=== PATIENT | female | born 1945 | race Caucasian/White ===

== ENCOUNTER 2017-09-03 08:33 | Emergency (ER) | payer MEDICARE, OTHER ==
--- NOTE | 2017-09-03 08:53 | EDM.PDOC ---
ED HPI GENERAL MEDICAL PROBLEM - General Chief Complaint: Lower Extremity Injury/Pain Stated Complaint: PAIN CALF OF LEFT LEG Time Seen by Provider: 09/03/17 08:53 Source of Information: Reports: Patient, RN, RN Notes Reviewed History Limitations: Reports: No Limitations - History of Present Illness INITIAL COMMENTS - FREE TEXT/NARRATIVE: Pt presents to the ER with c/o sharp stabbing pain to the left calf beginning at 0400 today. She states the pain goes up into the left groin and is achey in the groin. Patient states the pain goes away while sitting with the leg elevated. Patient states she has done her routine PT exercises for her back surgery. She denies any recent trauma to the leg. Patient states she has had some SOB with recent illness. Patient denies any past blood clots. Patient denies any fever or chills. 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: Other Medication(s) (hydrocodone) Left Leg Pain Score (Numeric/FACES): 5 - Related Data Allergies Allergy/AdvReac Type Severity Reaction Status Date / Time codeine Allergy Hallucinati Verified 09/03/17 08:41 ons pentazocine lactate Allergy Cannot Verified 09/03/17 08:41 [From [place]] Remember tramadol Allergy Cannot Verified 09/03/17 08:41 Remember Home Meds: Home Meds Aspirin [Adult Low Dose Aspirin EC] 81 mg PO DAILY 04/06/14 [History] Diclofenac Sodium [Voltaren] 1 tab PO BID 04/06/14 [History] LORazepam [Ativan] 1 tab PO ASDIRECTED 04/06/14 [History] Omeprazole [Omeprazole] 20 mg PO DAILY 04/06/14 [History] metFORMIN [Glucophage XR] 1 tab PO BIDMEALS 04/06/14 [History] Estrogens, Conjugated [Premarin Vaginal Crm] 1 applic TOP ASDIRECTED 06/26/16 [ History] Dronedarone [Multaq] 1 tab PO BID 06/30/16 [History] Hydrocodone/Acetaminophen [[place] 5-325] 1 tab PO ASDIRECTED PRN 06/30/16 [ History] Past Medical History HEENT History: Reports: Cataract, Hard of Hearing Cardiovascular History: Reports: Afib, Pacemaker Other Cardiovascular History: SICK SINUS SYNDROME Respiratory History: Reports: None Gastrointestinal History: Reports: None Genitourinary History: Reports: None 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: Musculoskeletal History: Reports: Back Pain, Chronic, Osteoarthritis Other Musculoskeletal History: DEGENERATIVE JOINT DISEASE - LUMBOSACRAL Neurological History: Reports: None Psychiatric History: Reports: Anxiety, Depression Endocrine/Metabolic History: Reports: Diabetes, Type II Hematologic History: Reports: None Immunologic History: Reports: None Oncologic (Cancer) History: Reports: None Dermatologic History: Reports: None - Infectious Disease History Infectious Disease History: Reports: Chicken Pox, Measles, Mumps, Shingles - Past Surgical History HEENT Surgical History: Reports: Adenoidectomy, Cataract Surgery, Tonsillectomy Respiratory Surgical History: Reports: None GI Surgical History: Reports: Cholecystectomy, Colonoscopy, EGD Female Surgical History: Reports: Section, Hysterectomy, Salpingo- Oophorectomy Musculoskeletal Surgical History: Reports: Other (See Below) Other Musculoskeletal Surgeries/Procedures:: back surgery Social & Family History - Family History Family Medical History: Noncontributory HEENT: Reports: Glaucoma Cardiac: Reports: Afib, Bypass, Hypertension, PR Respiratory: Reports: Asthma GI: Reports: None : Reports: None OBGYN: Reports: None Musculoskeletal: Reports: Arthritis, RA Neurological: Reports: CVA Psychiatric: Reports: None Endocrine/Metabolic: Reports: Hyperthyroidism, Other (See Below) Other Endocrine/Metabolic Family History: THYRIOD DISEASE - 3 MATERNAL AUNTS, MATERNAL GRANDMOTHER. GRAVES DISEASE - BROTHER Hematologic: Reports: None Immunologic: Reports: None Dermatologic: Reports: None Oncologic: Reports: Bone, Colon, Other (See Below) Other Oncologic Family History: multiple myleoma - Tobacco Use Smoking Status *Q: Former Smoker Years of Tobacco use: 24 Month/Year Tobacco Last Used: 1987 Second Hand Smoke Exposure: No - Caffeine Use Caffeine Use: Reports: Coffee - Alcohol Use Days Per Week of Alcohol Use: 0 - Recreational Drug Use Recreational Drug Use: No Drug Use in Last 12 Months: No Review of Systems - Review of Systems Review Of Systems: ROS reveals no pertinent complaints other than HPI. ED EXAM, GENERAL - Physical Exam Exam: See Below Exam Limited By: No Limitations General Appearance: Alert, WD/WN, No Apparent Distress Eye Exam: Bilateral Eye: EOMI, Normal Inspection, PERRL Ears: Normal External Exam, Hearing Grossly Normal Nose: Normal Inspection Throat/Mouth: Normal Inspection, Normal Voice, No Airway Compromise Head: Atraumatic, Normocephalic Neck: Normal Inspection, Supple, Non-Tender, Full Range of Motion Respiratory/Chest: No Respiratory Distress, No Accessory Muscle Use, Chest Non- Tender, Decreased Breath Sounds Cardiovascular: Normal Peripheral Pulses, Regular Rate, Rhythm, No Edema, No Gallop, No JVD, No Murmur, No Rub Peripheral Pulses: 2+: Radial (L), Radial (R), Dorsalis Pedis (L), Dorsalis Pedis (R) GI/Abdominal: Normal Bowel Sounds, Soft, Non-Tender, No Distention (Female) Exam: Deferred Rectal (Female) Exam: Deferred Back Exam: Normal Inspection, Decreased Range of Motion (recent back surgery) Extremities: Normal Inspection, Normal Range of Motion, No Pedal Edema, Normal Capillary Refill, Leg Pain (left calf, left groin) Neurological: Alert, Oriented, CN II-XII Intact, Normal Cognition, Normal Reflexes, No Motor/Sensory Deficits Psychiatric: Normal Affect, Normal Mood Skin Exam: Warm, Dry, Intact, Normal Color, No Rash, Other (increased warmth on left calf area). No: Erythema Lymphatic: No Adenopathy Course - Vital Signs Last Recorded V/S: Last Vital Signs Temp 96.8 F 09/03/17 08:37 Pulse 101 H 09/03/17 08:37 Resp 18 09/03/17 08:37 BP 147/59 H 09/03/17 08:37 Pulse Ox 95 09/03/17 08:37 - Orders/Labs/Meds Labs: Laboratory Tests 09/03/17 09/03/17 09/03/17 Range/Units 09:00 09:00 09:00 WBC 4.6 L (5.0-10.0) 10^3/uL RBC 4.22 (4.2-5.4) 10^6/uL Hgb 8.2 L (12.0-16.0) g/dL Hct 27.8 L (37.0-47.0) % MCV 65.9 L (80-100) fL MCH 19.4 L (27.0-34.0) pg MCHC 29.5 L (33.0-35.0) g/dL Plt Count 223 (150-450) 10^3/uL Neut % (Auto) 49.5 (42.2-75.2) % Lymph % (Auto) 38.3 (20.5-50.1) % Darke % (Auto) 6.8 (2-8) % Eos % (Auto) 2.6 (1.0-3.0) % Baso % (Auto) 2.8 H (0.0-1.0) % ESR 6 (0-20) mm/hr D-Dimer, Quantitative 816 H (0-400) ng/mL Sodium 136 (135-145) mmol/L Potassium 4.3 (3.6-5.0) mmol/L Chloride 103 (101-111) mmol/L Carbon Dioxide 22.0 (21.0-31.0) mmol/L Anion Gap 15.3 BUN 19 H (7-18) mg/dL Creatinine 0.8 (0.6-1.3) mg/dL Est Cr Clr Drug Dosing 66.59 mL/min Estimated GFR (MDRD) > 60 BUN/Creatinine Ratio 23.75 Glucose 171 H (74-105) mg/dL Calcium 9.0 (8.4-10.2) mg/dl Total Bilirubin 0.8 (0.2-1.0) mg/dL AST 30 (10-42) IU/L ALT 13 (10-60) IU/L Alkaline Phosphatase 47 (42-121) IU/L C-Reactive Protein (0.0-1.3) mg/dL Total Protein 7.2 (6.7-8.2) g/dl Albumin 3.9 (3.2-5.5) g/dl Globulin 3.3 Albumin/Globulin Ratio 1.18 / Range/Units 09:00 WBC (5.0-10.0) 10^3/uL RBC (4.2-5.4) 10^6/uL Hgb (12.0-16.0) g/dL Hct (37.0-47.0) % MCV (80-100) fL MCH (27.0-34.0) pg MCHC (33.0-35.0) g/dL Plt Count (150-450) 10^3/uL Neut % (Auto) (42.2-75.2) % Lymph % (Auto) (20.5-50.1) % Darke % (Auto) (2-8) % Eos % (Auto) (1.0-3.0) % Baso % (Auto) (0.0-1.0) % ESR (0-20) mm/hr D-Dimer, Quantitative (0-400) ng/mL Sodium (135-145) mmol/L Potassium (3.6-5.0) mmol/L Chloride (101-111) mmol/L Carbon Dioxide (21.0-31.0) mmol/L Anion Gap BUN (7-18) mg/dL Creatinine (0.6-1.3) mg/dL Est Cr Clr Drug Dosing mL/min Estimated GFR (MDRD) BUN/Creatinine Ratio Glucose (74-105) mg/dL Calcium (8.4-10.2) mg/dl Total Bilirubin (0.2-1.0) mg/dL AST (10-42) IU/L ALT (10-60) IU/L Alkaline Phosphatase (42-121) IU/L C-Reactive Protein 0.5 (0.0-1.3) mg/dL Total Protein (6.7-8.2) g/dl Albumin (3.2-5.5) g/dl Globulin Albumin/Globulin Ratio Occult blood: NEGATIVE - Radiology Interpretation Free Text/Narrative:: Left leg ultrasound: No Acute findings See rad report - Re-Assessments/Exams Free Text/Narrative Re-Assessment/Exam: 09/03/17 10:26 Discussed the patient case with her primary care provider, Dr. Calderon. He states he would like her to follow up with him next week regarding the hemaglobin, and pain in the left leg. Patient states understanding. Departure - Departure Time of Disposition: 10:44 Disposition: Home, Self-Care 01 Condition: Fair Clinical Impression: Pain in left lower leg, Musculoskeletal pain of left lower extremity Anemia Qualifiers: Anemia type: unspecified type Qualified Code(s): D64.9 - Anemia, unspecified - Discharge Information Instructions: Anemia, Muscle Strain, [id number] Forms: ED Department Discharge Additional Instructions: Follow up with your primary care facility early next week Elevate and rest the leg as tolerated May ice the area as tolerated
[2017-09-03 09:31] LABS: CHLORIDE,CL 103 mmol/L (101-111); SODIUM,NA 136 mmol/L (135-145)
--- NOTE | 2017-09-03 10:42 | US ---
Clinical history: 71-year-old female complaining of "stabbing" pain left calf. Rule out DVT this obes e symptomatic patient. Interpretation: Negative exam. No sign of intraluminal echogenic thrombus and normal compressibility deep veins of the left groin, t high, knee and. (Superficial varicosity calf left lower extremity). No Kim's cyst behind the left k nee. Satisfactory augmentation and venous waveforms demonstrated in the popliteal vein behind the left kne e and proximally in the femoral veins left lower extremity. CONCLUSION: No sonographic evidence deep vein thrombosis left lower gravity.
[2017-09-03 10:52] VITALS: BP 153/64
== END 2017-09-03 10:54 | disposition home or self-care (01) ==
LOC: DL.ED 08:33
DX: M79.662 Pain in left lower leg (principal); D64.9 Anemia, unspecified; E11.9 Type 2 diabetes mellitus without complications; Z88.5 Allergy status to narcotic agent; Z79.84 Long term (current) use of oral hypoglycemic drugs; Z79.899 Other long term (current) drug therapy; Z87.891 Personal history of nicotine dependence
CPT/HCPCS: 36415; 80053; 82272; 85025; 85379; 85651; 86140; 93971; 99283; 99284

== ENCOUNTER 2017-09-24 07:28 | Day surgery (SDC) | payer MEDICARE, OTHER ==
[~2017-09-24 07:28] MED LIST: Dextrose 5%-0.45% NaCl 1,000 ML IV SCH; Midazolam 1 MG/ML 2 ML SDV ONE; Sodium Chloride 0.9% 10 ML Syringe FLUSH PRN; fentaNYL 100 MCG/2 ML SDV ONE
[2017-09-24] MEDS ORDERED: fentaNYL 100 MCG/2 ML SDV IV ONE ×3 (07:29→08:58)
[2017-09-24] MEDS ORDERED: Midazolam 1 MG/ML 2 ML SDV IV ONE ×3 (07:29→09:00)
[2017-09-24 11:22] VITALS: BP 126/61
--- NOTE | 2017-09-24 13:52 | OR ---
DATE: 09/24/2017 PROCEDURES: Esophagogastroduodenoscopy, multiple pinch biopsies, and brush biopsy. INSTRUMENT USED: GIF-H180 Olympus video panendoscope. PREMEDICATIONS: No oral topical anesthesia used. Fentanyl 100 mcg intravenous, Versed 2 mg intravenous. Nasal O2 cannula. The procedure was done under pulse oximetry, BP recording, and secured entrance monitor. INDICATION: The patient with unexplained iron deficiency anemia, on long-term NSAIDs. Esophagogastroduodenoscopy was performed for detection of any active erosive lesions, malignancy also under consideration, endoscopic hemostasis therapy if needed. The scope was passed with ease. Adequate visualization of the esophagus was made from proximal to distal areas. No upper esophageal lesions identified. No distal esophageal stricture. No uphill or downhill esophageal varices. No Lillian-Hassan tear. No evidence of erosive esophagitis by [place] criteria. No esophageal polyp or tumor mass identified. Z-line was seen at around 40 cm distal to the oral verge, configuration consistent with grade 1 by ZAP classification. No esophageal polyp or tumor mass identified. No proximal gastric varices noted. Gastric fundus examination by retroflexion showed no malignant lesions. Gastric antrum showed no polyp or vascular ectasia, 1 cm sized superficial ulcer was noted in the antrum without bleeding from it. No visible vessel identified. Duodenal bulb showed no ulcer. Visualized second part of the duodenum was unremarkable. Multiple pinch biopsies were taken from the gastric antrum and proximal body and sent for PyloriTek test for H. pylori and histopathology. Multiple pinch biopsies 6 in number were taken from different areas of the gastric ulcer, brush biopsy was also taken for cytology. No bleeding was noted from any of the visualized areas at the completion of examination. Photographs were taken of the duodenal bulb, gastric antrum, fundus, and distal esophagus. IMPRESSION: Gastric antral ulcer. The patient tolerated the procedure well. [facility] /[id number]
== END 2017-09-24 11:27 | disposition home or self-care (01) ==
LOC: DL.ENDO 07:28
PROVIDERS: ATTEND Internal Medicine Gastroenterology
DX: K29.50 Unspecified chronic gastritis without bleeding (principal); K25.9 Gastric ulcer, unspecified as acute or chronic, without hemorrhage or perforation; K31.89 Other diseases of stomach and duodenum; Z88.8 Allergy status to other drugs, medicaments and biological substances; E66.9 Obesity, unspecified; F41.1 Generalized anxiety disorder; F32.9 Major depressive disorder, single episode, unspecified; E11.9 Type 2 diabetes mellitus without complications; E78.5 Hyperlipidemia, unspecified
CPT/HCPCS: 43239; 87077; J2250; J3010; J7042; 88305; 88342

== ENCOUNTER 2017-09-27 06:56 | Day surgery (SDC) | payer MEDICARE, OTHER ==
[2017-09-27] MEDS ORDERED: Midazolam 1 MG/ML 2 ML SDV IV ONE ×9 (06:57→08:27)
[2017-09-27] MEDS ORDERED: fentaNYL 100 MCG/2 ML SDV IV ONE ×5 (06:57→08:20)
--- NOTE | 2017-09-27 09:39 | OR ---
DATE: 09/27/2017 PROCEDURE: Total colonoscopy. INSTRUMENT USED: PCF-H180 [place] Olympus video colonoscope. PREMEDICATIONS: Fentanyl 150 mcg intravenous, Versed 5 mg intravenous. Nasal O2 cannula. The procedure was done under pulse oximetry, BP recording, and engine monitor. INDICATION: The patient with rectal bleeding and iron-deficiency anemia. Colonoscopic examination is done for detection of any polypoid lesions and removal, endoscopic hemostasis therapy if needed. DESCRIPTION OF PROCEDURE: Initial rectal exam showed external hemorrhoidal tags. Rigid anoscopy showed small internal hemorrhoids without bleeding from them. The colonoscope was passed with ease. Numerous scattered diverticula were noted in the distal left colon along with deformity. The scope was passed with ease up to the ileocecal area. Photographs were taken of the normal-appearing cecum identified by landmarks of appendiceal orifice and double-bulged ileocecal folds. No bleeding was noted from any of the visualized areas at the commencement of the examination. The bowel preparation was found to be adequate. No stricture. No vascular ectasia. No large isolated ulcerations seen. No evidence of diffuse inflammatory bowel disease in the form of friability, contact bleeding, or ulcerations. No polyp or tumor mass identified. Probing the proximal sides of folds and flexures, using adequate distention and clearing up the stool material, withdrawal of the scope was made. [id number] time over 6 minutes. No bleeding was noted from any of the visualized areas at the completion of examination. IMPRESSION: 1. External and internal hemorrhoids. 2. Diverticulosis. The patient tolerated the procedure well. [facility] /[id number]
[2017-09-27 10:50] VITALS: BP 137/49
== END 2017-09-27 10:35 | disposition home or self-care (01) ==
LOC: DL.ENDO 06:56
PROVIDERS: ATTEND Internal Medicine Gastroenterology
DX: K64.4 Residual hemorrhoidal skin tags (principal); K64.8 Other hemorrhoids; K57.30 Diverticulosis of large intestine without perforation or abscess without bleeding; D50.9 Iron deficiency anemia, unspecified; E11.9 Type 2 diabetes mellitus without complications; E66.09 Other obesity due to excess calories; E78.5 Hyperlipidemia, unspecified; F41.9 Anxiety disorder, unspecified; M19.90 Unspecified osteoarthritis, unspecified site; F32.9 Major depressive disorder, single episode, unspecified; Z80.0 Family history of malignant neoplasm of digestive organs; Z88.8 Allergy status to other drugs, medicaments and biological substances; Z88.6 Allergy status to analgesic agent; Z88.5 Allergy status to narcotic agent
CPT/HCPCS: 45378; J2250; J3010; J7042

== ENCOUNTER 2017-12-14 07:31 | Day surgery (SDC) | payer MEDICARE, OTHER ==
[2017-12-14] MEDS ORDERED: Midazolam 1 MG/ML 2 ML SDV IV ONE ×3 (07:32→08:44)
[2017-12-14] MEDS ORDERED: fentaNYL 100 MCG/2 ML SDV IV ONE ×3 (07:32→08:43)
--- NOTE | 2017-12-14 10:31 | OR ---
DATE: 12/14/2017 PROCEDURE: Esophagogastroduodenoscopy. INSTRUMENT USED: GIF-H180 [place] video panendoscope. PREMEDICATIONS: No oral topical anesthesia used. Fentanyl 100 mcg intravenous, Versed 1.5 mg IV. Nasal O2 cannula. The procedure was done under pulse oximetry, BP recording, and cardiac cath technician. INDICATION: The patient with status post iron-deficiency anemia and gastric ulcer, on therapy. DESCRIPTION OF PROCEDURE: Followup esophagogastroduodenoscopy is done for verification of total healing of gastric ulcers and rule out malignancy. Endoscopic hemostasis therapy if needed. The scope was passed with ease. Adequate visualization of the esophagus was made from proximal to distal areas. No upper esophageal lesions identified. No distal esophageal stricture. No uphill or downhill esophageal varices. No Lillian-Hassan tear. No evidence of erosive esophagitis by [place] criteria. No esophageal polyp or tumor mass identified. Z-line was seen at around 40 cm distal to the oral verge, configuration consistent with grade 1 by ZAPP classification. No proximal gastric varices noted. Gastric fundus examination by retroflexion showed no polypoid lesions. No gastric ulcer, malignant mass, or vascular ectasia identified. Duodenal bulb showed no ulcer. Visualized second part of the duodenum was unremarkable. No bleeding was noted from any of the visualized areas at the completion of examination. Photographs were taken of the duodenal bulb, gastric antrum, fundus, and distal esophagus. IMPRESSION: Normal study. The patient tolerated the procedure well. [facility] /[id number]
[2017-12-14 10:50] VITALS: BP 113/58
== END 2017-12-14 10:55 | disposition home or self-care (01) ==
LOC: DL.ENDO 07:31
PROVIDERS: ATTEND Internal Medicine Gastroenterology
DX: K25.9 Gastric ulcer, unspecified as acute or chronic, without hemorrhage or perforation (principal); D50.9 Iron deficiency anemia, unspecified; E11.9 Type 2 diabetes mellitus without complications; E78.5 Hyperlipidemia, unspecified; M19.90 Unspecified osteoarthritis, unspecified site; F41.9 Anxiety disorder, unspecified; F32.9 Major depressive disorder, single episode, unspecified; I49.5 Sick sinus syndrome; E66.9 Obesity, unspecified; Z68.28 Body mass index [BMI] 28.0-28.9, adult; Z79.84 Long term (current) use of oral hypoglycemic drugs; Z79.82 Long term (current) use of aspirin; Z79.899 Other long term (current) drug therapy; Z88.5 Allergy status to narcotic agent; Z88.8 Allergy status to other drugs, medicaments and biological substances
CPT/HCPCS: 43235; J2250; J3010; J7042

== ENCOUNTER 2019-08-11 17:42 | Emergency (ER) | payer MEDICARE, OTHER ==
[2019-08-11 18:01] VITALS: BP 132/58; PULSE 66
--- NOTE | 2019-08-11 18:28 | EDM.PDOC ---
ED HPI GENERAL MEDICAL PROBLEM - General Source of Information: Reports: Patient, Family (), RN, RN Notes Reviewed History Limitations: Reports: No Limitations - History of Present Illness Onset: Today Onset Time: 17:00 Location: Reports: Head, Face, Neck, Upper Extremity, Right Quality: Reports: Ache Severity: Mild Improves with: Reports: None Worsens with: Reports: None Associated Symptoms: Reports: Headaches. Denies: Chest Pain, Nausea/Vomiting, Shortness of Breath, Syncope Head Pain Score (Numeric/FACES): 5 <Shin Bonilla - Last Filed: 08/11/19 18:23> <Isabelle Flor - Last Filed: 08/11/19 20:41> - General Chief Complaint: Trauma Stated Complaint: FELL AND HIT HER NOSE Time Seen by Provider: 08/11/19 18:23 - History of Present Illness INITIAL COMMENTS - FREE TEXT/NARRATIVE: 73 year old female presents to the ER after she tripped and toe got caught on the carpet and fell in house, hit face and right shoulder, patient states shoulder was supposed to be replaced but this is on hold as has cancer, having frontal headache and right neck pain by the shoulder, which was there before, rates the pain 5/10, states held pressure to nose for 20 minutes before coming to ER, states Hg is 11.6, WBC up to 5.5 from 2.4, states plat. are a little down all drawn on Wednesday this week. patient states was diagnosed with MDS in December, states did lose quite a bit of blood, right top lip swollen, dried blood in mouth and on lips. ice to lip and neck. patient states she had a nose bleed after the fall but bleeding has stopped prior to arrival at the ER. Patient denies feeling lightheaded, dizzy or LOC. (Shin Bonilla) - Related Data Allergies Allergy/AdvReac Type Severity Reaction Status Date / Time atorvastatin [From Lipitor] Allergy Muscle Verified 08/11/19 18:01 Aches codeine Allergy Respiratory Verified 08/11/19 18:01 Distress ibuprofen Allergy Other Verified 08/11/19 18:01 risedronate sodium Allergy Other Verified 08/11/19 18:01 sertraline Allergy Other Verified 08/11/19 18:01 simvastatin Allergy Muscle Verified 08/11/19 18:01 Aches tramadol Allergy Cannot Verified 08/11/19 18:01 Remember alendronate sodium AdvReac Abdominal Verified 08/11/19 18:01 [From Fosamax] Pain Opioids-Methadone and Related AdvReac Shortness Verified 08/11/19 18:01 of Breath pentazocine lactate AdvReac Other Verified 08/11/19 18:01 [From Talwin] raloxifene AdvReac Abdominal Verified 08/11/19 18:01 Pain calcium-containing compounds Allergy Muscle Uncoded 08/11/19 18:01 Aches Home Meds: Home Meds Omeprazole 20 mg PO BID 04/06/14 [History] metFORMIN [Glucophage XR] 500 mg PO BIDMEALS 04/06/14 [History] Dronedarone HCl [Multaq] 400 mg PO BID 09/23/17 [History] Magnesium Oxide [Magnesium] 400 mg PO DAILY 09/23/17 [History] DULoxetine [Cymbalta] 60 mg PO DAILY 12/14/17 [History] Hydrocodone/Acetaminophen [Lorcet 5-325 mg Tablet] 1 tab PO Q6H 12/14/17 [ History] Acyclovir [Zovirax] 400 mg PO BID 08/11/19 [History] Levofloxacin 500 mg PO DAILY 08/11/19 [History] Voriconazole 200 mg PO BID 08/11/19 [History] Past Medical History HEENT History: Reports: Hard of Hearing, Impaired Vision Other HEENT History: RIGHT EYE CORRECTIVE LENS. UPPER DENTURE PLATE, BOTTOM PARTIAL PLATE Cardiovascular History: Reports: Afib, High Cholesterol, Pacemaker Other Cardiovascular History: SICK SINUS SYNDROME Respiratory History: Reports: None Gastrointestinal History: Reports: None Genitourinary History: Reports: None SUPERVISING NURSE History: Reports: Endometriosis, Musculoskeletal History: Reports: Arthritis, Back Pain, Chronic, Fracture, Osteoarthritis Other Musculoskeletal History: DEGENERATIVE JOINT DISEASE - LUMBOSACRAL Neurological History: Reports: None Psychiatric History: Reports: Anxiety, Depression Endocrine/Metabolic History: Reports: Diabetes, Type II, Obesity/BMI 30+ Hematologic History: Reports: Anemia Immunologic History: Reports: None Oncologic (Cancer) History: Reports: None Dermatologic History: Reports: None - Infectious Disease History Infectious Disease History: Reports: Chicken Pox, Measles, Mumps, Shingles - Past Surgical History HEENT Surgical History: Reports: Adenoidectomy, Cataract Surgery, Oral Surgery, Tonsillectomy Cardiovascular Surgical History: Reports: Cardiac Ablation, Pacer Respiratory Surgical History: Reports: None GI Surgical History: Reports: Cholecystectomy, Colonoscopy, EGD Female Surgical History: Reports: Breast Biopsy, Section, Hysterectomy, Salpingo-Oophorectomy, Tubal Ligation Endocrine Surgical History: Reports: None Neurological Surgical History: Reports: Laminectomy Musculoskeletal Surgical History: Reports: Other (See Below) Other Musculoskeletal Surgeries/Procedures:: back surgery Oncologic Surgical History: Reports: None Dermatological Surgical History: Reports: None <IreneShin - Last Filed: 08/11/19 18:23> Social & Family History - Family History Family Medical History: Noncontributory HEENT: Reports: Glaucoma Cardiac: Reports: Afib, Bypass, Hypertension, IN Respiratory: Reports: Asthma GI: Reports: None : Reports: None OBGYN: Reports: None Musculoskeletal: Reports: Arthritis, RA Neurological: Reports: CVA Psychiatric: Reports: None Endocrine/Metabolic: Reports: Hyperthyroidism, Other (See Below) Other Endocrine/Metabolic Family History: THYRIOD DISEASE - 3 MATERNAL AUNTS, MATERNAL GRANDMOTHER. GRAVES DISEASE - BROTHER Hematologic: Reports: None Immunologic: Reports: None Dermatologic: Reports: None Oncologic: Reports: Bone, Colon, Other (See Below) Other Oncologic Family History: multiple myleoma - Tobacco Use Smoking Status *Q: Never Smoker Second Hand Smoke Exposure: No - Caffeine Use Caffeine Use: Reports: Coffee Other Caffeine Use: AVERAGE OF 2 CUPS OF COFFEE DAILY. DIET COKE OCCASIONALLY - Recreational Drug Use Recreational Drug Use: No - Living Situation & Occupation Living situation: Reports: , with Spouse Occupation: Retired <Shin Bonilla - Last Filed: 08/11/19 18:23> Review of Systems - Review of Systems Review Of Systems: Comprehensive ROS is negative, except as noted in HPI. <Shin Bonilla - Last Filed: 08/11/19 18:23> ED EXAM, GENERAL - Physical Exam Exam: See Below Exam Limited By: No Limitations General Appearance: Alert, WD/WN, No Apparent Distress Eye Exam: Bilateral Eye: EOMI, Normal Inspection, PERRL Ears: Normal External Exam, Normal Canal, Hearing Grossly Normal, Normal TMs Ear Exam: Bilateral Ear: Auricle Normal, Canal Normal, TM normal Nose: Normal Mucosa, Nasal Tenderness, Nasal Swelling (bruising to the outside of nose from fall) Throat/Mouth: Normal Inspection, Normal Lips, Normal Teeth, Normal Gums, Normal Oropharynx, Normal Voice, No Airway Compromise, Other (blood in mouth and on lips from cut on lip and nose bleed.) Head: Atraumatic, Normocephalic Neck: Normal Inspection, Supple, Non-Tender, Full Range of Motion Respiratory/Chest: No Respiratory Distress, Lungs Clear, Normal Breath Sounds, No Accessory Muscle Use, Chest Non-Tender Cardiovascular: Normal Peripheral Pulses, Regular Rate, Rhythm, No Edema, No Gallop, No JVD, No Murmur, No Rub GI/Abdominal: Normal Bowel Sounds, Soft, Non-Tender, No Organomegaly, No Distention, No Abnormal Bruit, No Mass Extremities: Normal Inspection, Non-Tender, No Pedal Edema, Normal Capillary Refill, Limited Range of Motion (right shoulder, awaiting shoulder replacement) Neurological: Alert, Oriented, CN II-XII Intact, Normal Cognition, Normal Gait, Normal Reflexes, No Motor/Sensory Deficits Psychiatric: Normal Affect, Normal Mood Skin Exam: Warm, Dry, Intact, Normal Color, No Rash <Shin Bonilla - Last Filed: 08/11/19 18:23> Course <Shin Bonilla - Last Filed: 08/11/19 18:23> <Isabelle Flor - Last Filed: 08/11/19 20:41> - Vital Signs Last Recorded V/S: Last Vital Signs Temp 96.7 F L 08/11/19 18:07 Pulse 66 08/11/19 17:50 Resp 18 08/11/19 17:50 BP 132/58 L 08/11/19 17:50 Pulse Ox 100 08/11/19 17:50 - Orders/Labs/Meds Orders: Active Orders 24 hr Category Date Time Status Acetaminophen/HYDROcodone [[place] 325-5 MG] Med 08/11/19 20:34 Once 1 tab PO ONETIME ONE Labs: Laboratory Tests 08/11/19 08/11/19 Range/Units 18:41 18:41 WBC 3.4 L (5.0-10.0) 10^3/uL RBC 2.92 L (4.2-5.4) 10^6/uL Hgb 10.1 L (12.0-16.0) g/dL Hct 30.3 L (37.0-47.0) % MCV 103.8 H D (80-100) fL MCH 34.6 H (27.0-34.0) pg MCHC 33.3 (33.0-35.0) g/dL Plt Count 50 L (150-450) 10^3/uL Neut % (Auto) 57.6 (42.2-75.2) % Lymph % (Auto) 37.7 (20.5-50.1) % [place] % (Auto) 3.2 (2-8) % Eos % (Auto) 0.9 L (1.0-3.0) % Baso % (Auto) 0.6 (0.0-1.0) % Sodium 137 (135-145) mmol/L Potassium 3.4 L (3.6-5.0) mmol/L Chloride 105 (101-111) mmol/L Carbon Dioxide 21.0 (21.0-31.0) mmol/L Anion Gap 14.4 BUN 18 (7-18) mg/dL Creatinine 0.6 (0.6-1.3) mg/dL Est Cr Clr Drug Dosing 75.84 mL/min Estimated GFR (MDRD) > 60 BUN/Creatinine Ratio 30.00 Glucose 123 H (74-105) mg/dL Calcium 8.9 (8.4-10.2) mg/dl Total Bilirubin 0.8 (0.2-1.0) mg/dL AST 32 (10-42) IU/L ALT 12 (10-60) IU/L Alkaline Phosphatase 46 (42-121) IU/L Total Protein 6.3 L (6.7-8.2) g/dl Albumin 3.9 (3.2-5.5) g/dl Globulin 2.4 Albumin/Globulin Ratio 1.63 - Radiology Interpretation Free Text/Narrative:: Head CT without contrast: FINDINGS: Brain: No intracranial hemorrhage. Brainstem: No brainstem abnormality noted. Ventricles: Normal. No ventriculomegaly. Bones/joints: No calvarial or facial fractures. Sinuses: Visualized sinuses are unremarkable. No fluid levels. Mastoid air cells: Visualized mastoid air cells are well aerated. Soft tissues: Unremarkable. Other findings: No acute or active ROBOTIC MACHINE OPERATOR disease process. Mild senescent changes consistent with age. IMPRESSION: No acute or active ROBOTIC MACHINE OPERATOR disease process. Thank you for allowing us to participate in the care of your patient. Dictated and Authenticated by: Grant Cade MD 08/11/2019 8:07 PM Central Time ([place]) C-spine CT without contrast: FINDINGS: Vertebrae: No acute fracture. Normal alignment. Discs/Spinal canal/Neural foramina: No acute neural compression or compromise. Prevertebral Space: Prevertebral and paraspinal soft tissues are unremarkable. Soft tissues: Unremarkable. Lungs: Lung apices are normal. Other findings: Nawe-ed-[id number] cervical spondylosis with multilevel disc degeneration and facet disease. No intersegmental instability. IMPRESSION: 1. [id number] diffuse cervical spondylosis with multilevel disc degeneration and facet disease. 2. No visible neural compression or compromise or intersegmental instability. 3. Osteopenia or osteoporosis Thank you for allowing us to participate in the care of your patient. Dictated and Authenticated by: Grant Cade MD 08/11/2019 8:16 PM Central Time ([place]) Max/sinus/face CT without contrast: FINDINGS: Orbits: Orbits are normal. Globes are unremarkable. Sinuses: Prominent fluid and Air-fluid level in the left maxillary antrum. Large fluid and air-fluid level noted in the right maxillary antrum. Frontal, ethmoid and sphenoid sinuses are clear. Bones/joints: Angular septal deviation noted to the left within the nasal fossa. On the right, I note nondisplaced hairline fractures of the medial and lateral wall of the antrum. Tiny bubbles of gas are noted just lateral to the antrum in the adjacent soft tissues. On the left, similar nondisplaced hairline fractures are noted, again with soft tissue emphysema lateral to the antrum. There is a hairline fracture of the anterior floor of this orbit, but without any blowout of orbital contents. No significant displacement of bony fragments. Soft tissues: See Bones/joints Finding. IMPRESSION: 1. Substantial fluid noted in both maxillary antra with air-fluid levels. This may represent a hemarthrosis. 2. Multiple hairline fractures are noted to involve both maxillary antra without significant bony displacement. 3. More details above. Thank you for allowing us to participate in the care of your patient. Dictated and Authenticated by: Grant Cade MD 08/11/2019 8:14 PM Central Time ([place]) see radiologist's report (Isabelle Flor) Departure <Shin Bonilla - Last Filed: 08/11/19 18:23> - Departure Time of Disposition: 20:35 Condition: Fair - Discharge Information *PRESCRIPTION DRUG MONITORING PROGRAM REVIEWED*: No *COPY OF PRESCRIPTION DRUG MONITORING REPORT IN PATIENT RICKY: No <Isabelle Flor - Last Filed: 08/11/19 20:41> - Departure Disposition: Home, Self-Care 01 Clinical Impression: Nasal septal deviation, Maxillary fracture, left side, initial encounter for closed fracture, Maxillary fracture, right side, initial encounter for closed fracture, Hemarthrosis, MDS (myelodysplastic syndrome), Thrombocytopenia Orbit fracture, left Qualifiers: Encounter type: initial encounter Fracture type: closed Qualified Code(s): S02.85XA - Fracture of orbit, unspecified, initial encounter for closed fracture Fall at home Qualifiers: Encounter type: initial encounter Qualified Code(s): W19.XXXA - Unspecified fall, initial encounter; Y92.009 - Unspecified place in unspecified non- institutional (private) residence as the place of occurrence of the external cause Leukopenia Qualifiers: Leukopenia type: unspecified Qualified Code(s): D72.819 - Decreased white blood cell count, unspecified Anemia Qualifiers: Anemia type: unspecified type Qualified Code(s): D64.9 - Anemia, unspecified - Discharge Information Instructions: Head Injury, Adult, [id number], Orbital Floor Fracture Without Entrapment, Soft-Food Eating Plan Forms: ED Department Discharge Additional Instructions: No blowing the nose, leaning forward, or sucking through a straw Ice to the face as tolerated Return to the ER with any further problems Follow up with Dr. Calderon on Wednesday May use already prescribed pain medications as directed for pain Rest Sepsis Event Note - Evaluation Sepsis Screening Result: No Definite Risk - Focused Exam Date Exam was Performed: 08/11/19 Time Exam was Performed: 18:23 <Shin Bonilla - Last Filed: 08/11/19 18:23> - Focused Exam Date Exam was Performed: 08/11/19 Time Exam was Performed: 20:35 <Isabelle Flor - Last Filed: 08/11/19 20:41> - Focused Exam Vital Signs: Vital Signs Temp Pulse Resp BP Pulse Ox 08/11/19 18:07 96.7 F L 08/11/19 17:50 66 18 132/58 L 100 - My Orders Last 24 Hours: My Active Orders 08/11/19 20:34 Acetaminophen/HYDROcodone [[place] 325-5 MG] 1 tab PO ONETIME ONE - Assessment/Plan Last 24 Hours: My Active Orders 08/11/19 20:34 Acetaminophen/HYDROcodone [[place] 325-5 MG] 1 tab PO ONETIME ONE
[2019-08-11 19:01] LABS: ANION GAP 14.4; CHLORIDE,CL 105 mmol/L (101-111); SODIUM,NA 137 mmol/L (135-145)
[2019-08-11] MEDS ORDERED: Acetaminophen/HYDROcodone 325-5 MG Tab PO ONE (20:34)
== END 2019-08-11 20:55 | disposition home or self-care (01) ==
LOC: DL.ED 17:42
DX: S02.40DA Maxillary fracture, left side, initial encounter for closed fracture (principal); S02.85XA Fracture of orbit, unspecified, initial encounter for closed fracture; D72.819 Decreased white blood cell count, unspecified; D64.9 Anemia, unspecified; E11.9 Type 2 diabetes mellitus without complications; Z88.5 Allergy status to narcotic agent; Z88.8 Allergy status to other drugs, medicaments and biological substances; Z79.899 Other long term (current) drug therapy; W19.XXXA Unspecified fall, initial encounter
CPT/HCPCS: 36415; 70450; 70486; 72125; 80053; 85025; 99284; A9270

== ENCOUNTER 2019-10-06 15:44 | Emergency (ER) | payer MEDICARE, OTHER ==
--- NOTE | 2019-10-06 15:52 | EDM.PDOC ---
ED HPI GENERAL MEDICAL PROBLEM - General Stated Complaint: L.R.A. Time Seen by Provider: 10/06/19 15:52 Source of Information: Reports: Patient, EMS, EMS Notes Reviewed, RN, RN Notes Reviewed History Limitations: Reports: No Limitations, Physical Impairment - History of Present Illness INITIAL COMMENTS - FREE TEXT/NARRATIVE: Patient presents to ER per [facility] ambulance service as a trauma code. Patient states she was walking up the steps into her house and tripped falling and hitting her head on the step which is cement. Patient states she did not lose consciousness. Complains of pain and bleeding from the right side of the head, and pain in the right clavicle/shoulder area. Patient states she was to have shoulder surgery, but developed cancer and thus shoulder surgery has been put off. Patient able to lift the right arm or move it at all. Patient states platelets are up from 50-200. Patient denies any pain in the ribs, back, hips, lower extremities. GCS upon arrival: 15 GCS at 1 hour: 15 Onset: Today, Sudden - Related Data Allergies Allergy/AdvReac Type Severity Reaction Status Date / Time atorvastatin [From Lipitor] Allergy Muscle Verified 08/11/19 18:01 Aches codeine Allergy Respiratory Verified 08/11/19 18:01 Distress ibuprofen Allergy Other Verified 08/11/19 18:01 risedronate sodium Allergy Other Verified 08/11/19 18:01 sertraline Allergy Other Verified 08/11/19 18:01 simvastatin Allergy Muscle Verified 08/11/19 18:01 Aches tramadol Allergy Cannot Verified 08/11/19 18:01 Remember alendronate sodium AdvReac Abdominal Verified 08/11/19 18:01 [From Fosamax] Pain Opioids-Methadone and Related AdvReac Shortness Verified 08/11/19 18:01 of Breath pentazocine lactate AdvReac Other Verified 08/11/19 18:01 [From Talwin] raloxifene AdvReac Abdominal Verified 08/11/19 18:01 Pain calcium-containing compounds Allergy Muscle Uncoded 08/11/19 18:01 Aches Home Meds: Home Meds Omeprazole 20 mg PO BID 04/06/14 [History] metFORMIN [Glucophage XR] 500 mg PO BIDMEALS 04/06/14 [History] Dronedarone HCl [Multaq] 400 mg PO BID 09/23/17 [History] Magnesium Oxide [Magnesium] 400 mg PO DAILY 09/23/17 [History] DULoxetine [Cymbalta] 60 mg PO DAILY 12/14/17 [History] Hydrocodone/Acetaminophen [Lorcet 5-325 mg Tablet] 1 tab PO Q6H 12/14/17 [ History] Acyclovir [Zovirax] 400 mg PO BID 08/11/19 [History] Levofloxacin 500 mg PO DAILY 08/11/19 [History] Voriconazole 200 mg PO BID 08/11/19 [History] Past Medical History HEENT History: Reports: Hard of Hearing, Impaired Vision Other HEENT History: RIGHT EYE CORRECTIVE LENS. 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: Endometriosis, Musculoskeletal History: Reports: Arthritis, Back Pain, Chronic, Fracture, Osteoarthritis Other Musculoskeletal History: DEGENERATIVE JOINT DISEASE - LUMBOSACRAL Neurological History: Reports: None Psychiatric History: Reports: Anxiety, Depression Endocrine/Metabolic History: Reports: Diabetes, Type II, Obesity/BMI 30+ Hematologic History: Reports: Anemia Immunologic History: Reports: None Oncologic (Cancer) History: Reports: None Dermatologic History: Reports: None - Infectious Disease History Infectious Disease History: Reports: Chicken Pox, Measles, Mumps, Shingles - Past Surgical History HEENT Surgical History: Reports: Adenoidectomy, Cataract Surgery, Oral Surgery, Tonsillectomy Cardiovascular Surgical History: Reports: Cardiac Ablation, Pacer Respiratory Surgical History: Reports: None GI Surgical History: Reports: Cholecystectomy, Colonoscopy, EGD Female Surgical History: Reports: Breast Biopsy, Section, Hysterectomy, Salpingo-Oophorectomy, Tubal Ligation Endocrine Surgical History: Reports: None Neurological Surgical History: Reports: Laminectomy Musculoskeletal Surgical History: Reports: Other (See Below) Other Musculoskeletal Surgeries/Procedures:: back surgery Oncologic Surgical History: Reports: None Dermatological Surgical History: Reports: None Social & Family History - Family History Family Medical History: Noncontributory HEENT: Reports: Glaucoma Cardiac: Reports: Afib, Bypass, Hypertension, MS Respiratory: Reports: Asthma GI: Reports: None : Reports: None OBGYN: Reports: None Musculoskeletal: Reports: Arthritis, RA Neurological: Reports: CVA Psychiatric: Reports: None Endocrine/Metabolic: Reports: Hyperthyroidism, Other (See Below) Other Endocrine/Metabolic Family History: THYRIOD DISEASE - 3 MATERNAL AUNTS, MATERNAL GRANDMOTHER. GRAVES DISEASE - BROTHER Hematologic: Reports: None Immunologic: Reports: None Dermatologic: Reports: None Oncologic: Reports: Bone, Colon, Other (See Below) Other Oncologic Family History: multiple myleoma - Caffeine Use Caffeine Use: Reports: Coffee Other Caffeine Use: AVERAGE OF 2 CUPS OF COFFEE DAILY. DIET COKE OCCASIONALLY - Living Situation & Occupation Living situation: Reports: , with Spouse Occupation: Retired Review of Systems - Review of Systems Review Of Systems: Comprehensive ROS is negative, except as noted in HPI. ED EXAM, GENERAL - Physical Exam Exam: See Below Exam Limited By: No Limitations General Appearance: Alert, WD/WN, Mild Distress Eye Exam: Bilateral Eye: EOMI, Normal Inspection, PERRL (3 brisk) Ears: Normal External Exam, Hearing Grossly Normal Nose: Normal Inspection Throat/Mouth: Normal Inspection, Normal Voice, No Airway Compromise Course - Orders/Labs/Meds Labs: Laboratory Tests 10/06/19 10/06/19 10/06/19 Range/Units 15:50 15:50 15:50 WBC 2.9 L (5.0-10.0) 10^3/uL RBC 2.97 L (4.2-5.4) 10^6/uL Hgb 10.1 L (12.0-16.0) g/dL Hct 31.1 L (37.0-47.0) % MCV 104.7 H (80-100) fL MCH 34.0 (27.0-34.0) pg MCHC 32.5 L (33.0-35.0) g/dL Plt Count 230 D (150-450) 10^3/uL Neut % (Auto) 27.8 L (42.2-75.2) % Lymph % (Auto) 61.9 H (20.5-50.1) % [place] % (Auto) 9.3 H (2-8) % Eos % (Auto) 0.3 L (1.0-3.0) % Baso % (Auto) 0.7 (0.0-1.0) % Add Manual Diff Yes Neutrophils % (Manual) 22 L (42-75) % Band Neutrophils % 2 % Lymphocytes % (Manual) 66 H (20-50) % Monocytes % (Manual) 8 (2-8) % Basophils % (Manual) 2 PT 9.7 (9.0-12.0) SEC INR 1.0 (0.9-1.2) Sodium 143 (136-145) mmol/L Potassium 3.7 (3.5-5.1) mmol/L Chloride 105 (98-107) mmol/L Carbon Dioxide 23 (21-32) mmol/L Anion Gap 18.7 H (7-13) mEq/L BUN 18 (7-18) mg/dL Creatinine 0.86 (0.55-1.02) mg/dL Est Cr Clr Drug Dosing TNP Estimated GFR (MDRD) > 60 BUN/Creatinine Ratio 20.9 (No establ ref range) Glucose 132 H (74-99) mg/dL Calcium 9.0 (8.5-10.1) mg/dL Total Bilirubin 0.2 (0.2-1.0) mg/dL AST 13 L (15-37) U/L ALT 10 L (14-59) U/L Alkaline Phosphatase 61 (46-116) U/L Total Protein 6.2 L (6.4-8.2) g/dL Albumin 3.5 (3.4-5.0) g/dL Globulin 2.7 Albumin/Globulin Ratio 1.3 Meds: Medications Discontinued Medications Generic Name Dose Route Start Last Admin Trade Name Freq PRN Reason Stop Dose Admin Fentanyl 100 mcg 10/06/19 16:39 10/06/19 16:47 Sublimaze IVPUSH 10/06/19 16:40 100 mcg ONETIME ONE Administration - Radiology Interpretation Free Text/Narrative:: Right shoulder xray: FINDINGS: Bones/joints: T is he is here is a comminuted distal right clavicular fracture. Soft tissues: Normal. IMPRESSION: Distal clavicular fracture Thank you for allowing us to participate in the care of your patient. Dictated and Authenticated by: Andi Watson MD 10/06/2019 4:18 PM Central Time ([place] & [place]) Head CT wo contrast: FINDINGS: Brain: There is moderate supratentorial white matter lucency, consistent with chronic microvascular ischemic change.There is no sign of acute intracranial hemorrhage or cerebral edema. Ventricles: Normal. No hydrocephalus. Bones/joints: Normal. Skull base and overlying calvarium are intact. No lytic or osteosclerotic lesions. Sinuses: Gas in expected location of sigmoid sinus. Blood fluid level sphenoid sinus. Mastoid air cells: Visualized mastoid air cells are well aerated. Soft tissues: Unremarkable. IMPRESSION: 1. No direct sign of acute intracranial injury or skull fracture. 2. Gas in expected location of sigmoid sinus. This could be from intravenous access or an occult skull base fracture. Correlate clinically. Thank you for allowing us to participate in the care of your patient. Dictated and Authenticated by: Amos Lee MD 10/06/2019 4:26 PM Central Time ([place] & [place]) CSpine CT wo contrast: FINDINGS: Tubes, catheters and devices: Implanted right-sided central venous access device. Intravascular leads. Vertebrae: There are no perched or locked facets and the craniocervical relationship is normal. There is age-appropriate spondylosis. Other bones/joints: There is bilateral moderate sternoclavicular arthritis. Comminuted intra-articular fracture of medial clavicle with estimated 7 mm displacement. Soft tissues: Unremarkable. Vasculature: Gas in expected location of sigmoid sinus. Lungs: Lung apices are normal. IMPRESSION: 1. Comminuted intra-articular fracture of medial clavicle with estimated 7 mm displacement. 2. No sign of acute cervical spine injury. 3. Gas in expected location of sigmoid sinus. This could be from intravenous access or skull base fracture. Correlate clinically. Thank you for allowing us to participate in the care of your patient. Dictated and Authenticated by: Amos Lee MD 10/06/2019 4:25 PM Central Time ([place]) See rad report - Re-Assessments/Exams Free Text/Narrative Re-Assessment/Exam: 10/07/19 08:08 Discussed patient case with Dr. Schulte, Orthpedic Surgeon at [facility], who states the patient can be placed in a sling and can follow up with him in the clinic on Wednesday. Departure - Departure Time of Disposition: 18:03 Disposition: Home, Self-Care 01 Condition: Fair Clinical Impression: Laceration, MDS (myelodysplastic syndrome) Fracture, clavicle closed, shaft Qualifiers: Encounter type: initial encounter Fracture alignment: displaced Laterality: right Qualified Code(s): S42.021A - Displaced fracture of shaft of right clavicle, initial encounter for closed fracture Head injury Qualifiers: Encounter type: initial encounter Qualified Code(s): S09.90XA - Unspecified injury of head, initial encounter Fall at home Qualifiers: Encounter type: initial encounter Qualified Code(s): W19.XXXA - Unspecified fall, initial encounter - Discharge Information *PRESCRIPTION DRUG MONITORING PROGRAM REVIEWED*: No *COPY OF PRESCRIPTION DRUG MONITORING REPORT IN PATIENT RICKY: No Instructions: Concussion, Adult, [id number], Clavicle Fracture, [id number] , How to Use Cold Therapy, [id number], Head Injury, Adult, [id number], Laceration Care, Adult, [id number], Sutures, Reinier, or Adhesive Wound Closure, [id number] Referrals: Marek Calderon MD [Primary Care Provider] - Forms: ED Department Discharge Additional Instructions: Follow up with your primary care facility in 7-10 days to have reinier removed Call [facility] on Wednesday Morning to schedule an appointment with DR. SCHULTE [phone] He would like to see her on Wednesday Keep sling on at all times, except when in the shower Rest may use home pain medications for pain as directed Sepsis Event Note - Focused Exam Date Exam was Performed: 10/07/19 Time Exam was Performed: 08:08
[2019-10-06 16:31] LABS: ANION GAP 18.7 mEq/L (7-13); CHLORIDE,CL 105 mmol/L (98-107); SODIUM,NA 143 mmol/L (136-145)
[2019-10-06] MEDS ORDERED: fentaNYL 100 MCG/2 ML SDV IVPUSH ONE (16:39)
== END 2019-10-06 18:32 | disposition home or self-care (01) ==
LOC: DL.ED 15:44
DX: S42.021A Displaced fracture of shaft of right clavicle, initial encounter for closed fracture (principal); I48.91 Unspecified atrial fibrillation; E78.00 Pure hypercholesterolemia, unspecified; F41.9 Anxiety disorder, unspecified; F32.9 Major depressive disorder, single episode, unspecified; E11.9 Type 2 diabetes mellitus without complications; Z79.84 Long term (current) use of oral hypoglycemic drugs; Z79.899 Other long term (current) drug therapy; Z88.8 Allergy status to other drugs, medicaments and biological substances; Z88.5 Allergy status to narcotic agent; D46.9 Myelodysplastic syndrome, unspecified; W01.198A Fall on same level from slipping, tripping and stumbling with subsequent striking against other object, initial encounter
CPT/HCPCS: 36415; 70450; 72125; 73030; 80053; 85025; 85610; 96374; 99284; J3010

== ENCOUNTER 2019-12-06 06:51 | Emergency (ER) | payer MEDICARE, OTHER ==
[2019-12-06 06:55] VITALS: BP 117/53; PULSE 70
--- NOTE | 2019-12-06 07:13 | EDM.PDOC ---
ED HPI GENERAL MEDICAL PROBLEM - General Chief Complaint: Lower Extremity Injury/Pain Stated Complaint: INCOMING Time Seen by Provider: 12/06/19 07:05 Source of Information: Reports: Patient History Limitations: Reports: No Limitations - History of Present Illness INITIAL COMMENTS - FREE TEXT/NARRATIVE: Patient comes emergency department today by ambulance from home after a fall. This morning the patient stood up when she was in her bathroom and very shortly thereafter became lightheaded unsteady on her feet fell backwards landing on her buttocks. She did not hit her head or her back. This is been a recurring theme over the past couple of weeks. Anytime that she goes from a seated to standing position she feels lightheaded unsteady. Never feels like the room is moving or spinning. She feels lightheaded and unsteady. She has no blurred vision. She has had no chest pain shortness of breath or difficulty breathing. No palpitations. She denies any generalized weakness malaise body aches or fatigue. No fever no chills. No abdominal pain nausea or vomiting. She does complain of a sensation that her bladder is constantly full and burning. She denies any dysuria hematuria or urinary frequency. She complains of lower back pain and entire pelvis pain. She struggles with chronic low back pain that has gotten worse this morning after her fall. She denies any change in her bowel or bladder habits. No paresthesias of her lower extremities. She has had surgery on her back in the past. She has chronic generalized pelvic pain as well. Which is exacerbated after fall onto her buttocks this morning. She does have a history of myelodysplastic syndrome. Her hemoglobin earlier this week was 7.9 and she was sent to have it rechecked on . Right Hip Pain Score (Numeric/FACES): 8 - Related Data Allergies Allergy/AdvReac Type Severity Reaction Status Date / Time atorvastatin [From Lipitor] Allergy Muscle Verified 12/06/19 06:55 Aches codeine Allergy Respiratory Verified 12/06/19 06:55 Distress ibuprofen Allergy Other Verified 12/06/19 06:55 risedronate sodium Allergy Other Verified 12/06/19 06:55 sertraline Allergy Other Verified 12/06/19 06:55 simvastatin Allergy Muscle Verified 12/06/19 06:55 Aches tramadol Allergy Cannot Verified 12/06/19 06:55 Remember alendronate sodium AdvReac Abdominal Verified 12/06/19 06:55 [From Fosamax] Pain Opioids-Methadone and Related AdvReac Shortness Verified 12/06/19 06:55 of Breath pentazocine lactate AdvReac Other Verified 12/06/19 06:55 [From Talwin] raloxifene AdvReac Abdominal Verified 12/06/19 06:55 Pain calcium-containing compounds Allergy Muscle Uncoded 12/06/19 06:55 Aches Home Meds: Home Meds Omeprazole 20 mg PO DAILY 04/06/14 [History] metFORMIN [Glucophage XR] 500 mg PO BIDMEALS 04/06/14 [History] Dronedarone HCl [Multaq] 400 mg PO BIDMEALS 09/23/17 [History] Magnesium Oxide [Magnesium] 400 mg PO DAILY 09/23/17 [History] DULoxetine [Cymbalta] 60 mg PO DAILY 12/14/17 [History] Hydrocodone/Acetaminophen [Lorcet 5-325 mg Tablet] 1 tab PO Q6H PRN 12/14/17 [History] Acetaminophen 1,000 mg PO TID 12/06/19 [History] Cholecalciferol (Vitamin D3) [Vitamin D] 1 tab PO DAILY 12/06/19 [History] Melatonin 5 mg PO BEDTIME 12/06/19 [History] Ondansetron [Zofran] 8 mg PO Q8H PRN 12/06/19 [History] Prochlorperazine [Compazine] 10 mg PO Q6H PRN 12/06/19 [History] Past Medical History HEENT History: Reports: Hard of Hearing, Impaired Vision Other HEENT History: RIGHT EYE CORRECTIVE LENS. 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 History: Reports: Endometriosis, Musculoskeletal History: Reports: Arthritis, Back Pain, Chronic, Fracture, Osteoarthritis Other Musculoskeletal History: DEGENERATIVE JOINT DISEASE - LUMBOSACRAL Neurological History: Reports: Concussion Psychiatric History: Reports: Anxiety, Depression Endocrine/Metabolic History: Reports: Diabetes, Type II, Obesity/BMI 30+ Hematologic History: Reports: Anemia Immunologic History: Reports: None Oncologic (Cancer) History: Reports: Other (See Below) Other Oncologic History: myelodisplastic cancer Dermatologic History: Reports: None - Infectious Disease History Infectious Disease History: Reports: Chicken Pox, Measles, Mumps, Shingles - Past Surgical History HEENT Surgical History: Reports: Adenoidectomy, Cataract Surgery, Oral Surgery, Tonsillectomy Cardiovascular Surgical History: Reports: Cardiac Ablation, Pacer Respiratory Surgical History: Reports: None GI Surgical History: Reports: Cholecystectomy, Colonoscopy, EGD Female Surgical History: Reports: Breast Biopsy, Section, Hysterectomy, Salpingo-Oophorectomy, Tubal Ligation Endocrine Surgical History: Reports: None Neurological Surgical History: Reports: Laminectomy Musculoskeletal Surgical History: Reports: Other (See Below) Other Musculoskeletal Surgeries/Procedures:: back surgery Oncologic Surgical History: Reports: None Dermatological Surgical History: Reports: None Social & Family History - Family History Family Medical History: Noncontributory HEENT: Reports: Glaucoma Cardiac: Reports: Afib, Bypass, Hypertension, [place] Respiratory: Reports: Asthma GI: Reports: None : Reports: None OBGYN: Reports: None Musculoskeletal: Reports: Arthritis, RA Neurological: Reports: CVA Psychiatric: Reports: None Endocrine/Metabolic: Reports: Hyperthyroidism, Other (See Below) Other Endocrine/Metabolic Family History: THYRIOD DISEASE - 3 MATERNAL AUNTS, MATERNAL GRANDMOTHER. GRAVES DISEASE - BROTHER Hematologic: Reports: None Immunologic: Reports: None Dermatologic: Reports: None Oncologic: Reports: Bone, Colon, Other (See Below) Other Oncologic Family History: multiple myleoma - Tobacco Use Smoking Status *Q: Never Smoker Second Hand Smoke Exposure: No - Caffeine Use Caffeine Use: Reports: Coffee, Tea Other Caffeine Use: AVERAGE OF 2 CUPS OF COFFEE DAILY. DIET COKE OCCASIONALLY - Recreational Drug Use Recreational Drug Use: No - Living Situation & Occupation Living situation: Reports: , with Spouse Occupation: Retired Review of Systems - Review of Systems Review Of Systems: Comprehensive ROS is negative, except as noted in HPI. ED EXAM, GENERAL - Physical Exam Exam: See Below Exam Limited By: No Limitations General Appearance: Alert, WD/WN, No Apparent Distress Eye Exam: Bilateral Eye: EOMI, PERRL Ears: Normal External Exam Nose: Normal Inspection Throat/Mouth: Normal Inspection Head: Atraumatic, Normocephalic Neck: Normal Inspection, Supple, Non-Tender, Full Range of Motion. No: Tender Lateral, Tender Midline Respiratory/Chest: No Respiratory Distress, Lungs Clear, Normal Breath Sounds, No Accessory Muscle Use, Chest Non-Tender Cardiovascular: Normal Peripheral Pulses, Regular Rate, Rhythm Peripheral Pulses: 2+: Radial (L), Radial (R), Posterior Tibial (L), Posterior Tibial (R), Dorsalis Pedis (L), Dorsalis Pedis (R) GI/Abdominal: Normal Bowel Sounds, Soft, Non-Tender, Pelvis Stable (tenderness to the right hip. NO bruising swelling or other signs of trauma. ) (Female) Exam: Deferred Rectal (Female) Exam: Deferred Back Exam: Paraspinal Tenderness, Vertebral Tenderness (L 2-4 area without any step offs or overt bony deformity. ) Extremities: Normal Capillary Refill Neurological: Alert, Oriented, CN II-XII Intact, Normal Cognition, No Motor/Sensory Deficits Psychiatric: Normal Affect, Normal Mood Skin Exam: Warm, Dry, Intact, Normal Color, No Rash EKG INTERPRETATION EKG Date: 12/06/19 Time: 06:55 Rhythm: NSR Rate (Beats/Min): 78 [place]: Normal P-Wave: Present QRS: Normal ST-T: Normal QT: Normal Course - Vital Signs Last Recorded V/S: Last Vital Signs Temp 98 F 12/06/19 06:51 Pulse 70 12/06/19 06:51 Resp 18 12/06/19 06:51 BP 117/53 L 12/06/19 06:51 Pulse Ox 99 12/06/19 06:51 - Orders/Labs/Meds Orders: Active Orders 24 hr Category Date Time Status EKG Documentation Completion [RC] STAT Care 12/06/19 06:56 Active CULTURE URINE [RM] Urgent Lab 12/06/19 08:04 Received Transfuse Platelets [COMM] Stat Oth 12/06/19 07:40 Ordered Transfuse Red Blood Cells [COMM] Stat Oth 12/06/19 07:40 Ordered Labs: Laboratory Tests 12/06/19 12/06/19 12/06/19 Range/Units 07:25 07:25 07:25 WBC 1.7 L (5.0-10.0) 10^3/uL RBC 2.28 L (4.2-5.4) 10^6/uL Hgb 7.7 L D (12.0-16.0) g/dL Hct 23.5 L (37.0-47.0) % MCV 103.1 H (80-100) fL MCH 33.8 (27.0-34.0) pg MCHC 32.8 L (33.0-35.0) g/dL Plt Count 11 L* D (150-450) 10^3/uL Neut % (Auto) 5.3 L (42.2-75.2) % Lymph % (Auto) 76.0 H (20.5-50.1) % [place] % (Auto) 18.1 H (2-8) % Eos % (Auto) 0.6 L (1.0-3.0) % Baso % (Auto) 0.0 (0.0-1.0) % Add Manual Diff Yes Neutrophils % (Manual) 7 L (42-75) % Lymphocytes % (Manual) 79 H (20-50) % Monocytes % (Manual) 10 H (2-8) % Eosinophils % (Manual) 4 H (1-3) % Atypical Lymphocytes Moderate Platelet Estimate Marked dec Anisocytosis 1+ slight Macrocytosis 2+ moderate Target Cells 1+ slight Ovalocytes 1+ slight Stomatocytes 1+ slight Sodium 143 (136-145) mmol/L Potassium 4.5 (3.5-5.1) mmol/L Chloride 108 H (98-107) mmol/L Carbon Dioxide 27 (21-32) mmol/L Anion Gap 12.5 (7-13) mEq/L BUN 20 H (7-18) mg/dL Creatinine 0.69 (0.55-1.02) mg/dL Est Cr Clr Drug Dosing 72.49 mL/min Estimated GFR (MDRD) > 60 BUN/Creatinine Ratio 29.0 (No establ ref range) Glucose 111 H (74-99) mg/dL Calcium 9.1 (8.5-10.1) mg/dL Total Bilirubin 0.4 (0.2-1.0) mg/dL AST 14 L (15-37) U/L ALT 15 (14-59) U/L Alkaline Phosphatase 64 (46-116) U/L Troponin I 0.017 (0.000-0.056) ng/mL Total Protein 6.0 L (6.4-8.2) g/dL Albumin 3.5 (3.4-5.0) g/dL Globulin 2.5 Albumin/Globulin Ratio 1.4 Urine Color (YELLOW) Urine Appearance (CLEAR) Urine pH (5.0-9.0) Ur Specific [place] (1.005-1.030) Urine Protein (NEGATIVE) Urine Glucose (UA) (NEGATIVE) Urine Ketones (NEGATIVE) Urine Occult Blood (NEGATIVE) Urine Nitrite (NEGATIVE) Urine Bilirubin (NEGATIVE) Urine Urobilinogen (0.2-1.0) mg/dL Ur Leukocyte Esterase (NEGATIVE) Urine RBC /HPF Urine WBC (0-5/HPF) /HPF Ur Epithelial Cells (NOT SEEN) /HPF Amorphous Sediment (NOT SEEN) /HPF Urine Bacteria (0-FEW/HPF) /HPF Blood Type O POSITIVE Gel Antibody Screen Negative Crossmatch See Detail 12/06/19 Range/Units 08:04 WBC (5.0-10.0) 10^3/uL RBC (4.2-5.4) 10^6/uL Hgb (12.0-16.0) g/dL Hct (37.0-47.0) % MCV (80-100) fL MCH (27.0-34.0) pg MCHC (33.0-35.0) g/dL Plt Count (150-450) 10^3/uL Neut % (Auto) (42.2-75.2) % Lymph % (Auto) (20.5-50.1) % [place] % (Auto) (2-8) % Eos % (Auto) (1.0-3.0) % Baso % (Auto) (0.0-1.0) % Add Manual Diff Neutrophils % (Manual) (42-75) % Lymphocytes % (Manual) (20-50) % Monocytes % (Manual) (2-8) % Eosinophils % (Manual) (1-3) % Atypical Lymphocytes Platelet Estimate Anisocytosis Macrocytosis Target Cells Ovalocytes Stomatocytes Sodium (136-145) mmol/L Potassium (3.5-5.1) mmol/L Chloride (98-107) mmol/L Carbon Dioxide (21-32) mmol/L Anion Gap (7-13) mEq/L BUN (7-18) mg/dL Creatinine (0.55-1.02) mg/dL Est Cr Clr Drug Dosing mL/min Estimated GFR (MDRD) BUN/Creatinine Ratio (No establ ref range) Glucose (74-99) mg/dL Calcium (8.5-10.1) mg/dL Total Bilirubin (0.2-1.0) mg/dL AST (15-37) U/L ALT (14-59) U/L Alkaline Phosphatase (46-116) U/L Troponin I (0.000-0.056) ng/mL Total Protein (6.4-8.2) g/dL Albumin (3.4-5.0) g/dL Globulin Albumin/Globulin Ratio Urine Color Light yellow (YELLOW) Urine Appearance Clear (CLEAR) Urine pH 7.5 (5.0-9.0) Ur Specific [place] 1.020 (1.005-1.030) Urine Protein Negative (NEGATIVE) Urine Glucose (UA) Negative (NEGATIVE) Urine Ketones Negative (NEGATIVE) Urine Occult Blood Negative (NEGATIVE) Urine Nitrite Negative (NEGATIVE) Urine Bilirubin Negative (NEGATIVE) Urine Urobilinogen 0.2 (0.2-1.0) mg/dL Ur Leukocyte Esterase Trace H (NEGATIVE) Urine RBC 0-5 /HPF Urine WBC 0-5 (0-5/HPF) /HPF Ur Epithelial Cells Rare (NOT SEEN) /HPF Amorphous Sediment Rare (NOT SEEN) /HPF Urine Bacteria Rare (0-FEW/HPF) /HPF Blood Type Gel Antibody Screen Crossmatch Meds: Medications Discontinued Medications Generic Name Dose Route Start Last Admin Trade Name Freq PRN Reason Stop Dose Admin Morphine Sulfate 4 mg 12/06/19 09:26 Morphine IVPUSH 12/06/19 09:27 ONETIME ONE Ondansetron HCl 4 mg 12/06/19 09:24 Zofran IV 12/06/19 09:25 ONETIME ONE - Radiology Interpretation Free Text/Narrative:: X-ray of the pelvis per radiology no acute fractures or dislocation. X-ray lumbar spine per radiology no acute significant interval change. - Re-Assessments/Exams Free Text/Narrative Re-Assessment/Exam: 12/06/19 09:08 We do not have irradiated PRBCs or platelets here. Xray of lumbar and pelvis negative for acute fracture. Hgb about the same 7.7 Platelets are quite low at 11. I spoke with the hospitalist here in [place] and would like her transfered to [place]. I called and spoke with Dr. Cortés at [facility]. HPI ER COURSE findings and concerns were relayed. Accepted the patient in transfer at this time to [facility] for further care management Departure - Departure Time of Disposition: 09:13 Disposition: DC/Tfer to [facility] 02 Clinical Impression: Thrombocytopenia, MDS (myelodysplastic syndrome), Lumbar back pain, Pain in pelvis Anemia Qualifiers: Anemia type: unspecified type Qualified Code(s): D64.9 - Anemia, unspecified Leukopenia Qualifiers: Leukopenia type: unspecified Qualified Code(s): D72.819 - Decreased white blood cell count, unspecified - Discharge Information Forms: ED Department Discharge, Interfacility Transfer [facility] Sepsis Event Note (ED) - Evaluation Sepsis Screening Result: No Definite Risk - Focused Exam Vital Signs: Vital Signs Temp Pulse Resp BP Pulse Ox 12/06/19 06:51 98 F 70 18 117/53 L 99 - My Orders Last 24 Hours: My Active Orders 12/06/19 07:40 Transfuse Platelets [COMM] Stat Transfuse Red Blood Cells [COMM] Stat - Assessment/Plan Last 24 Hours: My Active Orders 12/06/19 07:40 Transfuse Platelets [COMM] Stat Transfuse Red Blood Cells [COMM] Stat Assessment:: Dizziness/falls, most likely due to anemia Anemia acute on chronic Thrombocytopenia acute on chronic Myelodisplastic syndrome. Chronic back and pelvic pain. Plan: Transfer to [facility] for further care and management.
--- NOTE | 2019-12-06 07:39 | CR ---
PROCEDURE INFORMATION: Exam: XR Right Hip with Pelvis when Performed Exam date and time: 12/06/2019 6:58 AM Age: 74 years old Clinical indication: Injury or trauma; Fall; Initial encounter; Blunt trauma (contusions or hematomas); Right; Hip; Additional info: Ground level fall (right hip pain) TECHNIQUE: Imaging protocol: XR Right hip with pelvis when performed. Views: 2 or 3 views. COMPARISON: CT Chest Abdomen Pelvis w Cont 01/28/2018 9:50 AM FINDINGS: Bones/joints: Degenerative changes in the bilateral hips. Degenerative changes in the bilateral sacroiliac joints. Soft tissues: Unremarkable. IMPRESSION: No acute fractures or dislocations.
[2019-12-06 07:53] LABS: ANION GAP 12.5 mEq/L (7-13); CHLORIDE,CL 108 mmol/L (98-107); SODIUM,NA 143 mmol/L (136-145)
--- NOTE | 2019-12-06 08:30 | CR ---
PROCEDURE INFORMATION: Exam: XR Lumbosacral Spine, 2 or 3 Views Exam date and time: 12/06/2019 8:01 AM Age: 74 years old Clinical indication: Low back pain; Additional info: Fall lower back pain TECHNIQUE: Imaging protocol: XR of the lumbosacral spine, 2 or 3 views. COMPARISON: CR Lumbar Spine 2 or 3V 01/16/2018 10:12 AM FINDINGS: Vertebrae: Severe multilevel degenerative disease and facet hypertrophy. Scoliosis. Sacrum/coccyx: Degenerative changes in the bilateral sacroiliac joints. Vasculature: Atherosclerotic disease. Soft tissues: Unremarkable. IMPRESSION: No acute significant interval change
[2019-12-06] MEDS ORDERED: Ondansetron 4 MG/2 ML SDV IV ONE (09:24)
== END 2019-12-06 10:15 ==
LOC: DL.ED 06:51
DX: M54.5 Low back pain (principal); R10.2 Pelvic and perineal pain; D46.9 Myelodysplastic syndrome, unspecified; D69.6 Thrombocytopenia, unspecified; I48.91 Unspecified atrial fibrillation; F41.9 Anxiety disorder, unspecified; F32.9 Major depressive disorder, single episode, unspecified; E66.9 Obesity, unspecified; Z68.24 Body mass index [BMI] 24.0-24.9, adult; E11.9 Type 2 diabetes mellitus without complications; Z88.8 Allergy status to other drugs, medicaments and biological substances; Z88.5 Allergy status to narcotic agent; Z88.6 Allergy status to analgesic agent; Z79.84 Long term (current) use of oral hypoglycemic drugs; Z79.899 Other long term (current) drug therapy
CPT/HCPCS: 36415; 72100; 73502; 80053; 81001; 84484; 85025; 86850; 86900; 86901; 86920; 86922; 87086; 93005; 96374; 96375; 99285; J2270; J2405